=== PATIENT | female | born 1975 | race Caucasian/White ===

== ENCOUNTER 2021-08-02 18:34 | Emergency (ER) | payer OTHER ==
[~2021-08-02] VITALS: Ht 160 cm; Wt 60.8 kg
--- NOTE | 2021-08-02 19:18 | NUR ---
DR. TRACY AT BEDSIDE, MSE IN PROGRESS.
[2021-08-02 19:26] LABS: HEMATOCRIT 38.6 % (31.2-41.9); MEAN CORPUSCULAR HEMOGLOBIN 29.6 uug (24.7-32.8); MEAN CORPUSCULAR VOLUME 87.8 fL (75.5-95.3); PLATELET COUNT (AUTO) 196 K/uL (179-408)
--- NOTE | 2021-08-02 19:27 | NUR ---
DR TRACY AT BEDSIDE FOR EVALUATION.
[2021-08-02] MEDS ORDERED: PROP10TA10 PO (19:30)
--- NOTE | 2021-08-02 19:30 | NUR ---
XRATY AT BEDSIDE.
[2021-08-02] MEDS ORDERED: NITROGLYCERIN 0.4 MG/TAB BOTTLE SL ONE ×2 (19:45→19:47)
[2021-08-02] MEDS ORDERED: FAMOTIDINE. 20 MG/2 ML VIAL IV ONE ×2 (19:45→19:48)
[2021-08-02] MEDS ORDERED: ASPIRIN 81 MG TAB.CHEW PO ONE (19:45)
[2021-08-02 19:46] LABS: ALANINE AMINOTRANSFERASE 27 U/L (14-59); ALKALINE PHOSPHATASE 91 U/L (50-136); ASPARTATE AMINOTRANSFERASE 16 U/L (15-37); BILIRUBIN,DIRECT 0.1 mg/dL (0.0-0.2); BILIRUBIN,TOTAL 0.2 mg/dL (0.2-1.0); CARBON DIOXIDE 30 mmol/L (21-32); CHLORIDE 103 mmol/L (98-107); CREATININE 0.9 mg/dL (0.6-1.3); GLUCOSE 77 mg/dL (74-106); POTASSIUM 3.7 mmol/L (3.5-5.1); TOTAL PROTEIN, SERUM 7.8 g/dL (6.4-8.2); UREA NITROGEN, BLOOD 12 mg/dL (7-18)
[2021-08-02] MEDS ORDERED: ASPIRIN 81 MG TAB.CHEW ONE (19:47)
--- NOTE | 2021-08-02 21:01 | NUR ---
PT RESTING IN BED, AWAKE AND NOTED TO BE USING HER PERSONAL PHONE.
--- NOTE | 2021-08-02 23:40 | NUR ---
Patient discharged to home in stable condition. Written and verbal after care instructions given. Patient verbalizes understanding of instructions. Stressed follow up or return to ER for worsening s/s. Steady gait. Denies any n/v. No TAFOYA/dizzyness. Denies any pain/discomfort upon discharge. Picked up by .
[2021-08-02 23:42] VITALS: BP 110/60
== END 2021-08-02 23:42 | disposition home or self-care (01) ==
LOC: ER 18:45
DX: R07.9 Chest pain, unspecified (principal); Z86.16 Personal history of COVID-19; R00.0 Tachycardia, unspecified; Z82.49 Family history of ischemic heart disease and other diseases of the circulatory system; R10.12 Left upper quadrant pain; E78.00 Pure hypercholesterolemia, unspecified; R03.0 Elevated blood-pressure reading, without diagnosis of hypertension
CPT/HCPCS: 36415; 71045; 80048; 80076; 83880; 84484 ×2; 84702; 85025; 85379; 93005 ×2; 96374; 99285; J3490; A4663

== ENCOUNTER 2021-12-03 20:59 | Emergency (ER) | payer OTHER ==
[~2021-12-03] VITALS: Ht 160 cm; Wt 63.5 kg
[~2021-12-03 20:59] MED LIST: PROP10TA10 PO
--- NOTE | 2021-12-03 21:50 | NUR ---
Pt provided urine sample, sent to lab.
[2021-12-03] MEDS ORDERED: ONDANSETRON 4 MG/2 ML VIAL IV ONE (22:15)
[2021-12-03] MEDS ORDERED: IV NORMAL SALINE 1000 ML BAG IV ONE (22:15)
[2021-12-03] MEDS ORDERED: ONDA4TAB5 PO (22:26)
[2021-12-03 22:33] LABS: CREATININE 0.8 mg/dL (0.6-1.3); HEMATOCRIT 37.5 % (31.2-41.9); MEAN CORPUSCULAR HEMOGLOBIN 27.7 uug (24.7-32.8); MEAN CORPUSCULAR VOLUME 84.2 fL (75.5-95.3); PLATELET COUNT (AUTO) 254 K/uL (179-408); POTASSIUM 3.8 mmol/L (3.5-5.1)
[2021-12-03 22:38] LABS: BILIRUBIN,DIRECT 0.1 mg/dL (0.0-0.2); BILIRUBIN,TOTAL 0.2 mg/dL (0.2-1.0)
--- NOTE | 2021-12-03 23:02 | NUR ---
pt is alert, oriented, speaking in full sentences. No distress. Pt able to ambulate with stability. No c/o of dizziness at this time. Water provided and able to drink well.
[2021-12-03 23:03] VITALS: BP 132/74
== END 2021-12-03 23:04 | disposition home or self-care (01) ==
LOC: ER 20:59
DX: R55 Syncope and collapse (principal); R03.0 Elevated blood-pressure reading, without diagnosis of hypertension
CPT/HCPCS: 36415; 84443; 85025; 93005; A4663